=== PATIENT | female | born 1995 | race Caucasian/White ===

== ENCOUNTER 2024-12-16 09:30 | Outpatient (AMB) | payer OTHER, SELFPAY ==
--- OUTSIDE RECORDS SUMMARY | 2024-12-13 07:50 | XMS_ITS | Encounter Summary ---
Author Organization [facility] Address [address] [facility] [place], [place] [address] [place] [address] Phone Care Team Providers Care Maintenance Carpenter Name Role Phone Samira Brambila MD Unavailable [phone] Samira Brambila MD Unavailable [phone] Roseline Villafana Primary Care Provider [phone] Reason for Visit * Reason Comments Routine Visit Encounter Details Date Type Department Care Team (Late st Contact Info) Description 12/13/2024 7:50 AM EDT Routine [facility] [address] [place] [address] Laury Quinn CNM [address] [place] [address] [email or web address] [place]: 27w4d Social History Tobacco Use Types Packs/Day Years Used Date Smoking Tobacco: Never Smokeless Tobacco: Never Alcohol Use Standard Drinks/Week Comments Not Currently 0 (1 standard drink = 0.6 oz pur e alcohol) rare Education Answer Date Recorded Are you interested in more education? Not on jenniffer e 08/15/2022 Are you concerned about learning? Not on file 08/15/2022 No 08/15/2022 No 08/15/2022 Digital Access Answer Date Recorded No 09/12/2022 No 09/12/2022 Reliable internet access at home? Not on file 09/12/2022 Device with a working camera? Not on file Estimated Date of Delivery Comme nts Yes 03/10/2025 Based on last me nstrual period of 06/03/2024 (Exact Date) Sex and Gender Information Value Date Recorded Sex Assigned at Not on file Legal Sex Female 8:55 PM EDT Gender Identity Not on file Sexual Orientation Not on file Occupation Industry Job Start Date Job End Date Pres[employer], [employer] Not on file No t on file Not on file documented as of this encounter Last Filed Vital Signs Vital Sign Reading Time Taken Comments Blood Pressure 110/64 12/13/2024 7:55 AM EDT Pulse - - Temperature - - Respiratory Rate - - Oxygen Saturation - - Inhaled Oxygen Concentration - - Weight 74.8 kg (164 lb 12.8 oz) 12/13/2024 7:55 AM EDT Height - - Body Mass Index 27.64 11/03/2022 11:33 AM EDT documented in this encounter Progress Notes * Laury Quinn CNM - 12/13/2024 7:50 AM EDT Encounter for supervision of normal in second trimester Rachel is a 29yo at 27w4d here w/Johnnie - active baby; denies VB, LOF Feeling a bit better overall (see back problem). Endorses some irregular cramping when she is more active. 3T labs to be drawn today Prepped for Tdap NV FKCs reviewed Questions answered re: indications for additional US LORI in 2-3wks or prn History of section Having some second thoughts about TOLAC w/recent back issues. Consideration for TOLAC would be reliant on her feelings about whether she would be able to tolerate labor and positioning for pushing. She plans to discuss w/provider at upcoming spine appt. Sacroiliac pain during MRI shows disc protrusion at L5/S1. Feeling better than LV, but still uncomfortable. Has started PT, which has helped a bit. Has upcoming appt for cortisone injection under US guidance. documented in this encounter Miscellaneous Notes * Assessment & Plan Note - Laury Quinn CNM - 12/13/2024 8:17 AM EDT Associated Problem(s): Sacroiliac pain during MRI shows disc protrusion at L5/S1. Feeling better than LV, but still uncomfortable. Has started PT, which has helped a bit. Has upcoming appt for cortisone injection under US guidance. * Assessment & Plan Note - Laury Quinn CNM - 12/13/2024 8:16 AM EDT Associated Problem(s): History of section Having some second thoughts about TOLAC w/recent back issues. Consideration for TOLAC would be reliant on her feelings about whether she would be able to tolerate labor and positioning for pushing. She plans to discuss w/provider at upcoming spine appt. * Assessment & Plan Note - Laury Quinn CNM - 12/13/2024 8:14 AM EDT Associated Problem(s): Encounter for supervision of normal in second trimester Rachel is a 29yo at 27w4d here w/Johnnie - active baby; denies VB, LOF Feeling a bit better overall (see back problem). Endorses some irregular cramping when she is more active. 3T labs to be drawn today Prepped for Tdap NV FKCs reviewed Questions answered re: indications for additional US LORI in 2-3wks or prn documented in this encounter Plan of Treatment Upcoming Encounters Date Type Department Care Team (Late st Contact Info) Description 12/26/2024 9:00 AM EDT Office Visit [facility] [address] [place] [address] [place] [address] Nella Edwards, DRYWALL HANGER HELPER [address] [facility], 2nd [place] [address] 12/28/2024 4:30 PM EDT Routine [facility] [address] [place] [address] [place] [address] Charo Multani, MEMO [address] [facility], [address] [place] [address] documented as of this encounter Visit Diagnoses Diagnosis Encounter for supervision of other normal in second trimester- Primary History of section Other postprocedural status Sacroiliac pain during documented in this encounter Additional Health Concerns Assessment Noted Time PHQ-2 Depression Total Score: 0 01/13/20 19 4:29 PM EDT documented as of this encounter Care Teams Maintenance Carpenter Relationship Specialty Start Date End Date Roseline Villafana PA [address] [place] [address] [email or web address] PCP - General Physician [employer] 12/23/23 Samira Brambila MD [address] [place] [address], [address] [place] [address] Historical LMR Provider 02/05/17 Samira Brambila MD [address] [place] [address], [address] [place] [address] Primary Care Physician 03/05/17 documented as of this encounter Additional Source Comments The information contained in this document represents components of the legal health record. It is not the complete legal health record.[facility]
--- OUTSIDE RECORDS SUMMARY | 2024-12-13 08:11 | XMS_ITS | Encounter Summary ---
Author Organization [facility] Address [address] [facility] [address] [place] [address] Phone Care Team Providers Care Bead Trimmer Name Role Phone Samira Brambila MD Unavailable [phone] Samira Brambila MD Unavailable [phone] Roseline Villafana Primary Care Provider [phone] Encounter Details Date Type Department Care Team (Latest Contact Info) Description 12/13/2024 8:11 AM EDT - 12/13/2024 11:59 PM EDT Hospital Encounter [facility] [address] [place] [address] Crystal Bradley CNM [address] [facility], [address] [place] [address] [email or web address] Discharge Disposition: Home or Self Care Social History Tobacco Use Types Packs/Day Years [...] on file documented as of this encounter Medications at Time of Discharge beclomethasone (QVAR) 40 mcg/actuation inhaler Inhale 2 puffs into the lungs 2 (two) times a day. doxylamine (UNISOM, DOXYLAMINE,) 25 mg tablet Take 1 tablet (25 mg total) by mouth nightly at bedtime as needed (sedation). 30 tablet 1 11/15/2024 escitalopram oxalate (LEXAPRO) 10 MG tablet TAKE 1 TABLET BY MOUTH EVERY DAY 90 tablet 1 11/10/2024 oxyCODONE 5 MG immediate release tabletIndications :Sacroiliac pain during Take 1 tablet (5 mg total) by mouth every 4 (four) hours as needed for pain (specific location in comments) (Back pain). Partial fill ok 30 tablet 11/09/2024 PNV no.95/ferrous fum/folic ac ( ORAL) Take by mouth. pyridoxine, vitamin B6, (B-6) 25 MG tablet Take 1 tablet (25 mg total) by mouth every 6 (six) hours as needed (nausea). 100 tablet 1 07/29/2024 documented as of this encounter Plan of Treatment Upcoming Encounters Date Type Department Care Team (Late st Contact Info) Description 12/26/2024 9:00 AM EDT Office Visit [facility] [address] [place] [address] [place] [address] Nella Edwards, ALARM ADJUSTER [address] [facility], [address] [place] [address] 12/28/2024 4:30 PM EDT Routine [facility] [address] [place] [address] [place] [address] Charo Multani, MEMO [address] [facility], [address] [place] [address] [email or web address] documented as of this encounter Procedures Procedure Name Priority Date/Time Associated Diagnosis Comments GLUCOSE TOLERANCE TEST, 1 HR Routine 12/13/2024 8:25 AM EDT Encounter for supervision of other normal in second trimester SYPHILIS ANTIBODY SCREEN ASSAY Routine 12/13/2024 8:25 AM EDT Encounter for supervision of other normal in second trimester CBC Routine 12/13/2024 8:25 AM EDT Encounter for supervision of other normal in second trimester documented in this encounter Results * Glucose tolerance test, 1 hr (12/13/2024 8:25 AM EDT) ONE HR GLUCOSE 85 70 - 180 mg/dL [facility] Blood 12/13/2024 8:25 AM EDT 12/13/2024 9:25 AM EDT Crystal Bradley [facility] LAB BLOOD ORDERABLES Final Resul t [facility] [address] [place] [address] * (ABNORMAL) CBC (12/13/2024 8:25 AM EDT) WBC 8.43 4.00 - 11.00 K/uL [facility] RBC 3.64(L) 4.00 - 5.20 M/uL [facility] HGB 11.3(L) 12.0 - 16.0 g/dL [facility] HCT 35.3(L) 36.0 - 46.0 % [facility] PLT 236 150 - 450 K/uL [facility] MCV 97.0 80.0 - 100.0 fL [facility] MCH 31.0 27.0 - 31.0 pg [facility] MCHC 32.0 32.0 - 36.0 g/dL [facility] RDW 13.6 11.5 - 14.5 % [facility] MPV 9.6 8.4 - 12.0 fL [facility] NRBC 0.00 0.00 /100 WBCs [facility] ABSOLUTE NRBC 0.00 0.00 K/uL [facility] Blood 12/13/2024 8:25 AM EDT 12/13/2024 9:25 AM EDT us Crystal Bradley [facility] LAB BLOOD ORDERABLES Final Resul t Performing Organization Address City/[facility]/ZIP Co de Phone Number [address] [address] * Syphilis antibody screen (12/13/2024 8:25 AM EDT) RPR NON-REACTIV E NON-REACTI VE [facility] Blood 12/13/2024 8:25 AM EDT 12/13/2024 9:25 AM EDT [facility] Final Resul t Performing Organization Address [facility] Co de Phone Number [address] [address] documented in this encounter Visit Diagnoses Diagnosis Encounter for supervision of other normal in second trimester documented in this encounter Additional Health Concerns Assessment Noted Time PHQ-2 Depression Total Score: 0 01/13/20 19 4:29 PM EDT documented as of this encounter Care Teams Bead Trimmer Relationship Specialty Start Date End Date Roseline Villafana PA [address] [place] [address] [email or web address] PCP - General Physician Grinder 12/23/23 Samira Brambila MD [address] [place] [address], [address] [place] [address] [email or web address] Historical LMR Provider 02/05/17 Samira Brambila MD [address] [place] [address], [address] [place] [address] [email or web address] Primary Care Physician 03/05/17 documented as of this encounter Additional Source Comments The information contained in this document represents components of the legal health record. It is not the complete legal health record.[facility]
[2024-12-16 09:36] VITALS: BP 125/62; PULSE 90; RESP 16; O2SAT 97; BMI 27.6
--- NOTE | 2024-12-16 09:36 | MHC.OFFVIS ---
Vital Signs 12/16/24 09:36 Height 5 ft 5 in Weight 166 lb BMI 27.6 BP 125/62 Blood Pressure Location Lt brachial Position Sitting Respiration 16 Pulse 90 Pulse Source Pulse Oximeter Pulse Oximetry (%) 97 Oxygen Delivery Method Room Air Intake Visit Reasons: L5-S1 JAY w/ultrasound Binder Operator Required: No Accompanied by: Spouse Allergies No Known Allergies Allergy (Verified 12/16/24 09:37) HPI HPI L5-S1 JAY w/ultrasound: Details: History of Present Illness The patient is a 29-year-old female presenting for a landmark right intralaminar epidural steroid injection due to right paracentral L5-S1 disc herniation with lumbar radiculopathy. She is 28 weeks and reports right-sided pain radiating down the leg, sometimes to the ankle, currently to the calf. This is the first time she has experienced such pain. Physical therapy has been attempted, providing minimal relief, and she remains uncomfortable. This is her second , with a history of epidural use during the first. Pain Description - Onset: First occurrence during current - Quality: Radiating pain down the right leg - Location: Right side, radiating to the calf and sometimes to the ankle - Exacerbating factors: Persistent despite physical therapy - Relieving factors: Slight relief with physical therapy Physical Exam - Lumbar Spine: Palpation performed to assess ASIS/spinous processes Results - Procedure: Status post landmark guided epidural steroid injection Pain Management - Affect: Pain causing significant discomfort - Analgesia: Undergoing epidural steroid injection for pain relief - Activities of Daily Living: Pain impacts daily comfort despite physical therapy Patient Instructions - Follow up with physical therapy as previously scheduled. - Monitor for any changes in pain or new symptoms and report them promptly. [facility] Medical History (Updated 12/01/24 @ 11:28 by Luisa Pedraza LPN) Sacrococcygeal disorders, not elsewhere classified Radiculopathy, lumbar region Physical Exam Vital Signs: Last Vital Signs Pulse 90 12/16/24 09:36 Resp 16 12/16/24 09:36 BP 125/62 12/16/24 09:36 Pulse Ox 97 12/16/24 09:36 Oxygen Delivery Method Room Air 12/16/24 09:36 BMI result Body Mass Index 27.6 Office Procedures AMB Joint Injection/Aspiration Joint Injection/Aspiration Details: Interlaminar epidural steroid injection, L5/S1, Right parasaggital After obtaining written consent, pre-procedure blood pressure and heart rate were stable and recorded in the nursing record. The patient was placed in the prone position. The lumbar area was widely prepped with chloraprep and draped in sterile fashion. Physical exam was used to identify the desired interlaminar space and for needle placement. Subcutaneous 0.5% lidocaine was used to anesthetize the skin overlying the target. A 17-gauge Tuohu needle was advanced to the epidural space using loss of resistance to saline technique. There was no evidence of heme or CSF and no paresthesias were elicited with needle placement. Next 3 ml 0.5% lidocaine mixed with 80 mg triamcinilone was administered epidurally with no pain elicited on injection. The needle tract tubing was then cleared with reinserting the stylet. The needle was removed, skin cleansed and a sterile bandage was applied. The patient tolerated the procedure well and no complications were encountered. Following the procedure the patient's vital signs were stable. The patient was discharged home in good condition with post-procedural instructions. Time Out: Immediately prior to the procedure, the following was verbally confirmed that there is a signed consent form and that the correct patient, planned procedure, site and side are consistent with documentation and that necessary equipment and/or blood products are available prior to the start of the case. Complications: none EBL: <2 cc Coding Details: Lumbar interlaminar epidural injection without fluoroscopy Additional procedure code (CPT) needed Assessment & Plan Assessment & Plan (1) Radiculopathy, lumbar region: Code(s): M54.16 - Radiculopathy, lumbar region Category: Medical Plan Plan Patient was informed and verbally consented to the use of an ambient scribe for clinic note documentation during this visit. 1. Right Paracentral L5-S1 Disc Herniation With Lumbar Radiculopathy - Plan: Administered landmark right intralaminar epidural steroid injection to alleviate lumbar radiculopathy symptoms. Discussion Notes I discussed with the patient the procedure of the landmark right intralaminar epidural steroid injection, explaining that it would be similar to the epidural she received during her first . We reviewed the expected outcomes and the potential for pain relief, and she consented to proceed. Coding Level of Care Code New Pt Level 4 (33219) Diagnoses Radiculopathy, lumbar region M54.16
--- OUTSIDE RECORDS SUMMARY | 2024-12-16 10:17 | XMS_ITS | Clinical Summary ---
Author Organization [facility] Address [address] [facility] [address] [place] [id number] Phone Care Team Providers Care Television Program Director Name Role Phone Samira Brambila MD Unavailable [phone] Samira Brambila MD Unavailable [phone] Roseline Villafana Primary Care Provider [phone] Allergies No known active allergies Medications beclomethasone (QVAR) 40 mcg/actuation inhaler Inhale 2 puffs into the lungs 2 (two) times a day. Active PNV no.95/ferrous fum/folic ac ( ORAL) Take by mouth. Active pyridoxine, vitamin B6, (B-6) 25 MG tablet Take 1 tablet (25 mg total) by mouth every 6 (six) hours as needed (nausea). 100 tablet 1 07/29/2024 Active escitalopram oxalate (LEXAPRO) 10 MG tablet TAKE 1 TABLET BY MOUTH EVERY DAY 90 tablet 1 11/10/2024 Active oxyCODONE 5 MG immediate release tabletIndicatio ns:Sacroiliac pain during Take 1 tablet (5 mg total) by mouth every 4 (four) hours as needed for pain (specific location in comments) (Back pain). Partial fill ok 30 tablet 11/09/2024 Active doxylamine (UNISOM, DOXYLAMINE,) 25 mg tablet Take 1 tablet (25 mg total) by mouth nightly at bedtime as needed (sedation). 30 tablet 1 11/15/2024 Active Active Problems Problem Noted Date Diagnosed Date Sacroiliac pain during 11/09/2024 Overview (12/13/2024): Seeing Dr. Mclean. Concern for disc herniation, MRI scheduled. - L5/S1 disc protrusion Tried tylenol, lidocaine patches, flexeril to no effect. 11/09/24: Dr. Naidu jimena narcotic. Rx for 30 tabs of oxycodone 5 mg rx'ed. Started PT Has cortisone injection planned Assessment & Plan (12/13/2024 8:17 AM EDT): MRI shows disc protrusion at L5/S1. Feeling better than LV, but still uncomfortable. Has started PT, which has helped a bit. Has upcoming appt for cortisone injection under US guidance. Assessment & Plan (11/15/2024 8:36 AM EDT): Rachel has severe low back pain with limitations in all ADLs. In visit she is standing leaning over with forearms on table and states she is in this position all day due to pain - states she actually sometimes sleeps in this position. Lying down and sitting down are too painful. She is observed walking and standing with discomfort. Wearing SI joint stabilizer. States tylenol, oxycodone, flexeril, and SI joint belt have had no impact. She had MRI on Thursday and is awaiting results, was advised she would receive these today or tomorrow. Her understanding is that she may receive a cortisone shot if MRI indicates pain is likely s/t sacroiliitis. Reviewed dosages of Tylenol and suggested sleep aid, lidocaine patch. Advised ok to take ibuprofen for severe pain for no more than 48 hours total time of therapy. Check in at n.v. Family history of polycystic kidney disease 07/19 Overview (08/16/2024): Mother and Maternal Uncle. Reports her mother had a kidney transplant 8 years ago, donated kidney from her father. She has never been worked up for polycystic kidney disease. Has had kidney stones in past. History of section 07/29/2024 Overview (10/20/2024): Date of surgery: 2022 Reason for prior : Failure to descend, pushed for 3 hours 3900gm baby Incision type: Need outside records. Likely LTCS at 41 weeks Records requested/reviewed: Contraindications to TOLAC include > 2 prior births, prior uterine rupture or dehiscence, prior transfundal incision (classical, T, or J incisions; myomectomy with incision into uterine cavity or by surgeon's discretion), interpregnancy interval < 6 months Anterior placenta no POSTERIOR If anterior, schedule level 2 US to assess for signs of accreta Delivery route counselin10/20/24 packet given Preferred mode of delivery: pt unsure Consent signed: If calculator score <60%, schedule MD consult at 35-37 weeks Calculator: 58.6%[email or web address] Assessment & Plan (12/13/2024 8:16 AM EDT): Having some second thoughts about TOLAC w/recent back issues. Consideration for TOLAC would be reliant on her feelings about whether she would be able to tolerate labor and positioning for pushing. She plans to discuss w/provider at upcoming spine appt. Assessment & Plan (11/15/2024 8:37 AM EDT): Feels ready to sign consent for TOLAC. Would like RCS at 41 weeks if no labor. Forgot to sign consent today. Please do at n.v. Assessment & Plan (10/20/2024 9:51 AM EDT): Records reviewed, but no OP report. Pt to sign MOISES specifically for the [facility] [place]. Info packet given. Pt planning another baby after this one, so would prefer two VBACs. However, wants to avoid another long labor that ended in a CS. Assessment & Plan (08/16/2024 12:46 PM EDT): Rachel reports she is open to either TOLAC or repeat c/s and is interested in discussing further about risks/benefits of both and recommendations. Encounter for supervision of normal in second trimester 07/29/2024 Overview (12/13/2024): [facility] Group PN care? * screening cfDNA Baby ASA n/a Rh A+ GC/Chlam Neg/Neg PAP - up to date per pt, MOISSE sent for [place] records Flu * COVID-19 * Hgb * GTT * Repeat RPR * Tdap * EPDS * PPBC * GBS * Infant Feeding Plan * Partner, Johnnie Expecting baby girl Assessment & Plan (12/13/2024 8:19 AM EDT): Rachel is a 29yo at 27w4d here w/Johnnie - active baby; denies VB, LOF Feeling a bit better overall (see back problem). Endorses some irregular cramping when she is more active. 3T labs to be drawn today Prepped for Tdap NV FKCs reviewed Questions answered re: indications for additional US LORI in 2-3wks or prn Assessment & Plan (11/15/2024 8:36 AM EDT): Here with partner. Visit focused on low back pain. Discussed GTT/CBC/RPR at time of n.v. Feeling movement. Discussed childbirth ed and CBC tours. Assessment & Plan (10/20/2024 9:54 AM EDT): Rachel is feeling generally well. Sciatic pain improved a bit with wearing support belt. Had FAS today, which we reviewed. Normal, follow up scheduled for incomplete views. Starting to feel FM LORI 2 wks for repeat US Assessment & Plan (09/14/2024 4:13 PM EDT): Rachel is doing well. Nausea is improving. Still having sciatic pain. The chiropractor she contacted was charging a lot of money. Reviewed other options with her. Discussed support belt and spinning babies exercises. Happy to hear heartbeat today. Anatomy scan ordered and scheduled. Cystic fibrosis carrier 07/29/2024 Overview (07/29/2024): Partner tested and was negative Mild intermittent asthma without complication Overview (08/16/2024): Exercise induced. Never hospitalized or intubated Has a rescue inhaler Anxiety 11/09/2017 Overview (07/29/2024): Taking Lexapro, stable Had mild pp depression after son was born. Lexapro helped a lot. Would like to continue through the Assessment & Plan (08/16/2024 12:49 PM EDT): Pt would like referral to therapist. Referral placed. Menstrual migraine 11/09/2017 Estimated Date of Delivery Comme nts Yes 03/10/2025 Based on last me nstrual period of 06/03/2024 (Exact Date) Encounters Date Type Department Care Team Description 12/13/2024 8:11 AM EDT - 12/13/2024 11:59 PM EDT Hospital Encounter [facility] [address] [place] [address] Crystal Bradley CNM Discharge Disposition: Home or Self Care 12/13/2024 7:50 AM EDT Routine [facility] [address] [place] [address] Laury Quinn CNM GA: 27w4d 11/21/2024 Orders Only [facility] Neurology [address] [place] [address] Opal Spencer MA Lumbar radiculitis 11/17/2024 Orders Only [facility] Spine Medicine [address] [place] [address] Bo Mclean MD 11/15/2024 7:50 AM EDT Routine [facility] [address] [place] [address] [place] [address] Crystal Bradley CNM GA: 23w4d 11/09/2024 3:29 PM EDT - 11/09/2024 11:59 PM EDT Hospital Encounter [facility] [address] [place] [address] Clari Mack CNM Discharge Disposition: Home or Self Care 11/09/2024 9:00 AM EDT Telemedicine - audio only [facility] Spine Medicine [address] [place] [address] [place] [address] Bo Mclean MD Lumbar radiculitis (Primary Dx); Disorder of sacrum 11/09/2024 Refill [facility] [address] [place] [address] [place] [address] Jacque Peace CNM Medication Refill 11/07/2024 Orders Only [facility] [address] [place] [address] [place] [address] Bo Mclean MD Lumbar radiculitis (Primary Dx) 11/06/2024 Telephone [facility] Obstetrics - Virtual Department [address] [place] [address] Hazel Dinero CNM worsening SI pain 11/04/2024 Telephone [facility] [address] [place] [address] [place] [address] Clari Mack CNM Appointment 11/03/2024 Orders Only [facility] Medicine [address] [place] [address] [place] [address] Bo Mclean MD Disorder of sacrum (Primary Dx) 11/03/2024 Telephone [facility] [address] [place] [address] [place] [address] Bo Mclean MD 10/20/2024 9:30 AM EDT Routine [facility] [address] [place] [address] [place] [address] Clari Mack CNM GA: 19w6d 10/20/2024 8:06 AM EDT - 10/20/2024 11:59 PM EDT Hospital Encounter [facility] [address] [place] [address] Charo Multani CNM Discharge Disposition: Home or Self Care 10/13/2024 8:20 AM EDT Office Visit [facility] [address] [place] [address] Bo Mclean MD Disorder of sacrum (Primary Dx); related back pain in second trimester, antepartum 10/05/2024 Telephone [facility] [address] [place] [address] Klaudia Jj LPN SI joint pain 03/09 from Last 3 Months Immunizations Immunization Administration Dates Next Due COVID-19 (Pre-02/09) Moderna Vaccine, mRNA, PF 01/05/2021,11/28/2020 DTaP 10/30/1997, 5,01/10/1994,11/08,1993 [id number] FORMULATION 01/25/2009 HPV,quadrivalent 04/15/2012,12/23/2011, 2 Hepatitis B Adult 09/21/2008, 9,08/11/2008,04/18,1993,1993 Hib,PRP-T 10/09/1994, 4,1993,09/13 INFLUENZA, SPLIT VIRUS, TRIV ALENT W/ PRESERVATIVE IM 02/28/2014,02/20/2012,12/02/2010,03/07 IPV 10/30/1997, 4,1993,09/13 Influenza Quadrivalent Prese rvative Free IM 03/22/2020 Influenza Quadrivalent w/ Pr eservative IM 01/12/2019 Influenza Trivalent Adjuvant ed Preservative free IM 03/21/2020 MMR 10/30/1997,10/09/1994 Meningococcal MCV4, unspecif ied Formulation 10/14/2011,07/21/2005 Tdap 04/10/2022,07/21/2005 Varicella 08/11/2008 Family History Medical History Relation Comments Allergies Father Diabetes mellitus Maternal Grandfather Osteoarthritis Maternal Grandfather Valvular heart disease Maternal Grandfather 50s Polycystic kidney disease Maternal Uncle ? Hypertension Mother Osteoarthritis Mother Polycystic kidney disease Mother Nephrolithiasis Paternal Grandmother Migraines Sibling Relation Status Comments Brother Alive Father Maternal Grandfather Maternal Uncle Mother Paternal Grandmother Sibling Sister 1 Alive Sister 2 Alive Son Alive Social History Tobacco Use Types Packs/Day Years Used Date Smoking Tobacco: Never Smokeless Tobacco: Never Tobacco Cessation:Counseling Given: Not Answered Alcohol Use Standard Drinks/Week Comments Not Currently [...] Industry Job Start Date Job End Date [employer] [employer] Not on file No t on file Not on file Last Filed Vital Signs Vital Sign Reading Time Taken Comments Blood Pressure 110/64 12/13/2024 7:55 AM EDT Pulse 85 01/12/2019 4:28 PM EDT Temperature - - Respiratory Rate - - Oxygen Saturation 98% 01/12/2019 4:28 PM EDT Inhaled Oxygen Concentration - - Weight 74.8 kg (164 lb 12.8 oz) 12/13/2024 7:55 AM EDT Height 164.5 cm (5' 4.75 ) 11/03/2022 1 1:33 AM EDT Body Mass Index 27.64 11/03/2022 11:33 AM EDT Plan of Treatment Upcoming Encounters Date Type Department Care Team (Late st Contact Info) Description 12/26/2024 9:00 AM EDT Office Visit [facility] [address] [place] [address] [place] [address] Nella Edwards, PASCALE [address] [facility] [address] [facility] [place] [address] 12/28/2024 4:30 PM EDT Routine [facility] [address] [place] [address] [place] [address] Charo Multani, MEMO [address] [facility], [address] [place] [address] [email or web address] Health Maintenance Due Date Last Done Comments PNEUMOCOCCAL VACCINES (0-49 years) (1 of 2 - PCV) 2012 DEPRESSION SCREENING 01/13/2020 01/12/2019 PAP SMEAR 01/12/2022 01/12/2019, 12/20, 08/15/2014 COVID-19 VACCINE ( season) 2023 01/05/2021, 11/28/2020 INFLUENZA VACCINE (#1) 2024 , 03/21/2020, 01/12/2019, Additional history exists RSV VACCINE (1 - Risk 1-dose series) 01/13/2025 Adult Td,Tdap Booster 04/10/2032 04/10/2022, 006 HIB VACCINES Completed 10/09/1994, 12/20, 1993, Additional history exists MENINGOCOCCAL VACCINES (ACWY) Completed 10/14/2011, 07/21/2005 HEPATITIS C SCREENING Completed 08/16/2024 HIV ONE-TIME SCREENING (18-65 YEARS) Completed 08/16/2024 SMOKING STATUS SCREENING (Once After 26 Yrs) Completed 11/09/2024 HEPATITIS A VACCINES Aged Out No long er eligible based on patient's age to complete this topic MENINGOCOCCAL VACCINES (B) Aged Out N o longer eligible based on patient's age to complete this topic Medical Devices Not on file Procedures Procedure Name Priority Date/Time Associated Diagnosis Comments GLUCOSE TOLERANCE TEST, 1 HR Routine 12/13/2024 8:25 AM EDT Encounter for supervision of other normal in second trimester CBC Routine 12/13/2024 8:25 AM EDT Encounter for supervision of other normal in second trimester SYPHILIS ANTIBODY SCREEN ASSAY Routine 12/13/2024 8:25 AM EDT Encounter for supervision of other normal in second trimester MRI LUMBAR SPINE Urgent/patient waiting 11/11/2024 10:55 AM EDT Lumbar radiculitis US OB GREATER THAN OR EQUAL TO 14 WEEKS LIMITED Routine 11/09/2024 4:06 PM EDT Encounter for supervision of other normal in second trimester US OB GREATER THAN OR EQUAL TO 14 WEEKS ANATOMICAL COMPLETE SURVEY Routine 10/20/2024 8:51 AM EDT Encounter for supervision of other normal in first trimester HEPATITIS C ANTIBODY, QUALITATIVE Routine 08/16/2024 9:30 AM EDT Need for hepatitis C screening test PAP TEST Routine 01/12/2019 12:00 AM EDT from Last 3 Months or Most Recently Relevant to Health Maintenance Results * Glucose tolerance test, 1 hr (12/13/2024 8:25 AM EDT) ONE HR GLUCOSE 85 70 - 180 mg/dL [facility] Blood 12/13/2024 8:25 AM EDT 12/13/2024 9:25 AM EDT Crystal [facility]ZO LAB BLOOD ORDERABLES Final Resul t [address] [address] * Syphilis antibody screen (12/13/2024 8:25 AM EDT) RPR NON-REACTIV E NON-REACTI VE [facility] Blood 12/13/2024 8:25 AM EDT 12/13/2024 9:25 AM EDT Crystal RAZO LAB BLOOD ORDERABLES Final Resul t Performing Organization Address [facility] de Phone Number [address] [address] * (ABNORMAL) CBC (12/13/2024 8:25 AM EDT) WBC 8.43 4.00 - 11.00 K/uL [facility] RBC 3.64(L) 4.00 - 5.20 M/uL [facility] HGB 11.3(L) 12.0 - 16.0 g/dL [facility] HCT 35.3(L) 36.0 - 46.0 % [facility] PLT 236 150 - 450 K/uL [facility] MCV 97.0 80.0 - 100.0 fL [facility] MCH 31.0 27.0 - 31.0 pg [facility] MCHC 32.0 32.0 - 36.0 g/dL [facility] RDW 13.6 11.5 - 14.5 % [facility] MPV 9.6 8.4 - 12.0 fL [facility] NRBC 0.00 0.00 /100 WBCs [facility] ABSOLUTE NRBC 0.00 0.00 K/uL [facility] Blood 12/13/2024 8:25 AM EDT 12/13/2024 9:25 AM EDT us Crystal Bradley [facility] LAB BLOOD ORDERABLES Final Resul t Performing Organization Address [facility] Co de Phone Number [address] [address] * MRI Lumbar Spine (11/11/2024 10:55 AM EDT) Anatomical Region Laterality Modality L-spine MRI Diagnostic us Bo Mclean MD IMG MR XSPECIALTY Final Resu lt * US OB GREATER THAN OR EQUAL TO 14 WEEKS LIMITED (11/09/2024 4:06 PM EDT) Anatomical Region Laterality Modality Abdomen, Pelvis, Uterus/Adnexa U ltrasound 11/09/2024 4:08 PM EDT Impressions 11/10/2024 8:13 AM EDT Follow anatomic views as described above appear normal. Narrative 11/10/2024 8:13 AM EDT Procedure: US OB GREATER THAN OR EQUAL TO 14 WEEKS LIMITED 11/09/2024 3:30 PM US Indications: Other Indication (Please use free text); incomplete views. Comparison: No relevant recent comparisons. Maternal age: 29 years. Technique: Transabdominal scan was performed. Color Doppler and M-mode imaging was performed to assess vascularity. FINDINGS: number: 1 position: Vertex. Placental position: Posterior. Placental Grade: 2 Placental appearance: Normal. Amniotic fluid assessment: The amniotic fluid is visually within normal limits. FHR: 144.0 bpm Gestational Age by LMP: 22 weeks 5 day(s) Established GRISELDA: 22 weeks 5 day(s) Documented anatomy: Head/Neck: Lateral ventricles - Seen Midline falx - Seen Cavum septi pellucidi - Seen Chest: Four-chamber view - Seen Right ventricular outflow tract - Seen Aortic Arch - Seen 3 Vessel View - Seen Abdomen: Stomach - Seen Diaphragm - Seen Kidneys - Seen Urinary bladder - Seen Placental Cord Insertion - Seen Limbs: Right ankle - seen Left ankle - seen Spine (in sagittal and transverse plane): Cervical - Seen Thoracic - Seen Lumbar - Seen Sacral - Seen Motion: Normal motion was observed. Cervix: Uterine myometrium: Grossly normal Right ovary: Unremarkable Left ovary: Unremarkable Tech Comments: Harris . RVOT, 3VV, ankles, and spine appear grossly normal. Active fetus. Normal fluid. Procedure Note Jed Quigley MD - 11/10/2024 Procedure: US OB GREATER THAN OR EQUAL TO 14 WEEKS LIMITED 11/09/2024 3:30PM US Indications: Other Indication (Please use free text); incompleteviews. Comparison: No relevant recent comparisons. Maternal age: 29 years. Technique: Transabdominal scan was performed. Color Doppler and M-modeimaging was performed to assess vascularity. FINDINGS: number: 1 position: Vertex. Placental position: Posterior. Placental Grade: 2 Placental appearance: Normal. Amniotic fluid assessment: The amniotic fluid is visually within normallimits. FHR: 144.0 bpm Gestational Age by LMP: 22 weeks 5 day(s) Established GRISELDA: 22 weeks 5 day(s) Documented anatomy: Head/Neck: Lateral ventricles - Seen Midline falx - Seen Cavum septi pellucidi - Seen Chest: Four-chamber view - Seen Right ventricular outflow tract - Seen Aortic Arch - Seen 3 Vessel View - Seen Abdomen: Stomach - Seen Diaphragm - Seen Kidneys - Seen Urinary bladder - Seen Placental Cord Insertion - Seen Limbs: Right ankle - seen Left ankle - seen Spine (in sagittal and transverse plane): Cervical - Seen Thoracic - Seen Lumbar - Seen Sacral - Seen Motion: Normal motion was observed. Cervix: Uterine myometrium: Grossly normal Right ovary: Unremarkable Left ovary: Unremarkable Tech Comments: Harris . RVOT, 3VV, ankles, and spine appear grossly normal.Active fetus. Normal fluid. IMPRESSION: Follow anatomic views as described above appear normal. us Clari Mack CNM IMG US OBSTETRIC Final Res ult * US OB GREATER THAN OR EQUAL TO 14 WEEKS ANATOMICAL COMPLETE SURVEY (10/20/2024 8:51 AM EDT) Anatomical Region Laterality Modality Abdomen, Pelvis, Uterus/Adnexa U ltrasound 10/20/2024 8:52 AM EDT Impressions 10/23/2024 10:26 PM EDT 1. Single live IUP with above dating criteria. 2. Heart and LE views were limited recommend repeat exam in two weeks to reassess these views. 3. The remainder of the anatomic survey appears grossly normal. Narrative 10/23/2024 10:26 PM EDT Procedure: US OB GREATER THAN OR EQUAL TO 14 WEEKS ANATOMICAL COMPLETE SURVEY 10/20/2024 8:18 AM US Indications: Anatomic Survey. Comparison: No relevant recent comparisons. Maternal age: 29 years. Technique: Transabdominal scan was performed. Color Doppler and M-mode imaging was performed to assess vascularity. FINDINGS: number: 1 position: Vertex. Placental position: Posterior. Placental Grade: 2 Placental appearance: Normal. Amniotic fluid assessment: The amniotic fluid is visually within normal limits. FHR: 150.0 bpm Estimated weight (EFW): 286.9 grams- 10 oz. 19.4% based on established GRISELDA Hadlock. Reported LMP: [id number] Gestational Age by LMP: 19 weeks 6 day(s) Ultrasound EGA: 19 weeks 3 day(s) Ultrasound GRISELDA: [id number] Established GRISELDA: 19 weeks 6 day(s) Biometry: BPD: 4.40 cm, consistent with 19 weeks 3 day(s) and 27% Head Circumference: 16.70 cm, consistent with 19 weeks 3 day(s) and 21% Abdominal Circumference: 14.22 cm, consistent with 19 weeks 5 day(s) and 35% Femur Length: 2.94 cm, consistent with 19 weeks 1 day(s) and 17% Humerus: 3.12 cm, consistent with 20 weeks 3 day(s) and 69% Cerebellum: 1.98 cm, consistent with 20 weeks 2 day(s) Lat Vent: 0.55 cm Cist Ma.34 cm HC/AC: 1.17 FL/BPD: 0.67 FL/AC: 0.21 Documented anatomy: Head/Neck: Lateral ventricles - Seen Choroid plexus - Seen Midline falx - Seen Cavum septi pellucidi - Seen Cerebellum - Seen Cisterna magna - Seen Nuchal fold - Seen Face: Orbit/Lenses - Seen Upper lip - Seen Profile - Seen Chest: Four-chamber view - Seen Left ventricular outflow tract - Seen Right ventricular outflow tract - Not seen Aortic Arch - Limited Ductal Arch - Seen 3 Vessel View - Seen 3 VTV - Seen Abdomen: Stomach - Seen Diaphragm - Seen Kidneys - Seen Urinary bladder - Seen Abdominal cord insertion - Seen Three-vessel cord - Seen Placental Cord Insertion - Seen Limbs: Right arm and hand present - Seen Left arm and hand present - Seen Right leg and foot present - Seen Left leg and foot present - Seen Spine (in sagittal and transverse plane): Cervical - Not seen Thoracic - Not seen Lumbar - Not seen Sacral - Not seen Motion: Normal motion was observed. Cervix: 3.82 cm Uterine myometrium: Grossly normal Right ovary: Not visualized. Left ovary: Not visualized. Tech Comments: Harris . EFW = 19%. Incomplete heart and heels/ankles views today d/t position. Remaining anatomy appears grossly normal. Active fetus. Normal fluid. Procedure Note Jed Quigley MD - 10/23/2024 Procedure: US OB GREATER THAN OR EQUAL TO 14 WEEKS ANATOMICAL COMPLETESURVEY 10/20/2024 8:18 AM US Indications: Anatomic Survey. Comparison: No relevant recent comparisons. Maternal age: 29 years. Technique: Transabdominal scan was performed. Color Doppler and M-modeimaging was performed to assess vascularity. FINDINGS: number: 1 position: Vertex. Placental position: Posterior. Placental Grade: 2 Placental appearance: Normal. Amniotic fluid assessment: The amniotic fluid is visually within normallimits. FHR: 150.0 bpm Estimated weight (EFW): 286.9 grams- 10 oz. 19.4% based on established GRISELDA Hadlock. Reported LMP: [id number] Gestational Age by LMP: 19 weeks 6 day(s) Ultrasound EGA: 19 weeks 3 day(s) Ultrasound GRISELDA: [id number] Established GRISELDA: 19 weeks 6 day(s) Biometry: BPD: 4.40 cm, consistent with 19 weeks 3 day(s) and 27% Head Circumference: 16.70 cm, consistent with 19 weeks 3 day(s) and 21% Abdominal Circumference: 14.22 cm, consistent with 19 weeks 5 day(s) and35% Femur Length: 2.94 cm, consistent with 19 weeks 1 day(s) and 17% Humerus: 3.12 cm, consistent with 20 weeks 3 day(s) and 69% Cerebellum: 1.98 cm, consistent with 20 weeks 2 day(s) Lat Vent: 0.55 cm Cist Ma.34 cm HC/AC: 1.17 FL/BPD: 0.67 FL/AC: 0.21 Documented anatomy: Head/Neck: Lateral ventricles - Seen Choroid plexus - Seen Midline falx - Seen Cavum septi pellucidi - Seen Cerebellum - Seen Cisterna magna - Seen Nuchal fold - Seen Face: Orbit/Lenses - Seen Upper lip - Seen Profile - Seen Chest: Four-chamber view - Seen Left ventricular outflow tract - Seen Right ventricular outflow tract - Not seen Aortic Arch - Limited Ductal Arch - Seen 3 Vessel View - Seen 3 VTV - Seen Abdomen: Stomach - Seen Diaphragm - Seen Kidneys - Seen Urinary bladder - Seen Abdominal cord insertion - Seen Three-vessel cord - Seen Placental Cord Insertion - Seen Limbs: Right arm and hand present - Seen Left arm and hand present - Seen Right leg and foot present - Seen Left leg and foot present - Seen Spine (in sagittal and transverse plane): Cervical - Not seen Thoracic - Not seen Lumbar - Not seen Sacral - Not seen Motion: Normal motion was observed. Cervix: 3.82 cm Uterine myometrium: Grossly normal Right ovary: Not visualized. Left ovary: Not visualized. Tech Comments: Harris . EFW = 19%. Incomplete heart and heels/ankles viewstoday d/t position. Remaining anatomy appears grossly normal.Active fetus. Normal fluid. IMPRESSION: 1. Single live IUP with above dating criteria. 2. Heart and LE views were limited recommend repeat exam in two weeks toreassess these views. 3. The remainder of the anatomic survey appears grossly normal. Charo Multani CNM IMG US OBSTETRIC Final Result * Hepatitis C antibody, qualitative (08/16/2024 9:30 AM EDT) HCV NON-REACTIV E NON-REACTI VE [facility] Blood 08/16/2024 9:30 AM EDT 08/16/2024 9:43 AM EDT Charo Multani CNM LAB BLOOD ORDERABLES F inal Result [address] [address] * Pap Smear (01/12/2019 12:00 AM EDT) 01/12/2019 01/13/2019 10: 48 AM EDT Narrative SEE NARRATIVE - 01/19/2019 3:02 PM EDT [address] [address] Silver Buffer: Valeria Coronel MD BANK CONSULTANT Cytology Report FINAL DIAGNOSIS A. PAP SMEAR (SUREPATH) CE: SPECIMEN ADEQUACY: Satisfactory for evaluation; transformation zone present. INTERPRETATION: NEGATIVE FOR INTRAEPITHELIAL LESION OR MALIGNANCY. Electronically Signed Out By: Magnolia PHILIPPE(ASCP) The Pap test is a screening test primarily for squamous cancers and precursors and has associated false-negative and false-positive results. New technologies such as liquid-based preparations may decrease but will not eliminate all false-negative results. Regular sampling and follow-up of unexplained clinical signs and symptoms are recommended to minimize false negative results. CLINICAL HISTORY Date of Last Menstrual Period: Not Provided Menstrual History: Unknown Other Clinical Conditions: Screening Pap SPECIMEN SOURCE A: PAP SMEAR (SUREPATH) CE Patient Name: KIMBERLY BALTAZARA : 1995 (Age: 23) Sex: F Institution: [facility] Location: [facility] Date of Collection: 01/12/2019 Date of Reported: 01/19/2019 15:02 Results to: Samira Brambila MD Samira Brambila MD CYTOLOGY ORDERABLES Final R esult SEE NARRATIVE from Last 3 Months or Most Recently Relevant to Health Maintenance Insurance [facility] PLUS PPO [employer] PLUS PPO [employer]US PPO [employer] PLUS PPO [employer] PLUS PPO [employer] PLUS PPO Care Teams Television Program Director Relationship Specialty Start Date End Date Roseline Villafana PA [address] [place] [address] [email or web address] PCP - General Physician Credit Operations Specialist 12/23/23 Samira Brambila MD [address] [place] [id number] Historical LMR Provider 02/05/17 Samira Brambila MD [address] [place] [address] Primary Care Physician 03/05/17 Additional Source Comments The information contained in this document represents components of the legal health record. It is not the complete legal health record.[facility]
--- OUTSIDE RECORDS SUMMARY | 2024-12-16 10:17 | XMS_ITS | Encounter Summary ---
Author Organization [facility] Address [address] [facility] [address] [place] [address] Phone Care Team Providers Care Swimming Instructor Name Role Phone Samira Brambila MD Unavailable [phone] Samira Brambila MD Unavailable [phone] Roseline Villafana Primary Care Provider [phone] Encounter Details Date Type Department Care Team (Late st Contact Info) Description 11/21/2024 Orders Only [facility] Neurology [address] [place] [address] Opal Spencer MA [address] [place] [address] [email or web address] Lumbar radiculitis Social History Tobacco Use Types Packs/Day Years [...] Industry Job Start Date Job End Date Yoli Michel Not on file No t on file Not on file documented as of this encounter Plan of Treatment Upcoming Encounters Date Type Department Care Team (Late st Contact Info) Description 12/26/2024 9:00 AM EDT Office Visit [facility] [address] [place] [address] [place] [address] Nella Edwards, BELT KNIFE FEEDER [address] [facility], 2nd [address] [place] [address] [email or web address] 12/28/2024 4:30 PM EDT Routine [facility] [address] [place] [address] [place] [address] Charo Multani, MEMO [address] [facility], [address] [place] [address] documented as of this encounter Procedures Procedure Name Priority Date/Time Associated Diagnosis Comments MRI LUMBAR SPINE Urgent/patient waiting 11/11/2024 10:55 AM EDT Lumbar radiculitis documented in this encounter Results * MRI Lumbar Spine (11/11/2024 10:55 AM EDT) Anatomical Region Laterality Modality L-spine MRI Diagnostic us Bo Mclean MD IMG MR XSPECIALTY Final Resu lt documented in this encounter Visit Diagnoses Diagnosis Lumbar radiculitis documented in this encounter Additional Health Concerns Assessment Noted Time PHQ-2 Depression Total Score: 0 01/13/20 19 4:29 PM EDT documented as of this encounter Care Teams Swimming Instructor Relationship Specialty Start Date End Date Roseline Villafana PA [address] [place] [address] [email or web address] [email or web address] - General Physician Scrap Wheeler 12/23/23 Samira Brambila MD [address] [place] [address], [address] [place] [address] Historical LMR Provider 02/05/17 Samira Brambila MD [address] [place] [address], [address] [place] [address] Primary Care Physician 03/05/17 documented as of this encounter Additional Source Comments The information contained in this document represents components of the legal health record. It is not the complete legal health record.[facility]
--- OUTSIDE RECORDS SUMMARY | 2024-12-16 10:17 | XMS_ITS | Patient Health Record ---
Author Organization [facility] Address [address] [facility] [address] [place] [address] Support Name Relationship Address Phone SUDHA STUBBS Guarantor Unknown [phone] Reason For Referral No Information Social History Section Notes: Patient lives locally with olga lidia lawler. She does not have any children. 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 Plan Of Treatment No Information Insurance Providers Payer Name Payer Address Payer Phone Subscriber Number Group Number Insured Name Patient Relationship to Insured Coverage Start Date Coverage End Date [employer] Benef[employer] Plan Management [address] [place] [address] [phone] [id number] SUDHA STUBBS Self - patient is the insured Medical (General) History Medical History History ICD Code Denies Surgical History Surgery Date(Month/Year) Denies
--- OUTSIDE RECORDS SUMMARY | 2024-12-16 10:17 | XMS_ITS | Encounter Summary ---
Author Organization [facility] Address [address] [address] Phone Care Team Providers Care Blankbook Stitching Machine Operator Name Role Phone Crystal Bradley MEMO Unavailable Sheila Acharya NP Unavailable [phone] Samira Brambila MD Unavailable Chloé Elkins MD Unavailable [phone] Samira Brambila MD Unavailable Samira Brambila MD Primary Care Provider [phone] Unknown, Unknown Primary Care Provider Samira Castañeda MD Primary Care Provider Pcp, Unknown Primary Care Provider UnavailRoseline Stoll Primary Care Provider [phone] Encounter Details Date Type Department Care Team (Latest Contact Info) Description 03/24/2017 Transcribe Orders [facility] [address] [place] [address] Karthikeyan Odom MD, PhD [address] [place] [address] [id number] [email or web address] Anemia due to vitamin B12 deficiency, unspecified B12 deficiency type (Primary Dx); Lyme disease; Chronic fatigue Social History Tobacco Use Types Packs/Day Years Used Date Smoking Tobacco: Never Smokeless Tobacco: Never Comments Unknown Sex and Gender Information Value Date Recorded Sex Assigned at Not on file Legal Sex Female 8:55 PM EDT Gender Identity Not on file Sexual Orientation Not on file documented as of this encounter Plan of Treatment Upcoming Encounters Date Type Department Care Team (Late st Contact Info) Description 12/26/2024 9:00 AM EDT Office Visit [facility] [address] [place] [address] [place] [address] Nella Edwards, TIRE BLADDER MAKER [address] [facility], 2nd [place] [address] 12/28/2024 4:30 PM EDT Routine [facility] [address] [place] [address] [place] [address] Charo Multani, [facility] [address] [facility], [address] [place] [address] documented as of this encounter Procedures Procedure Name Priority Date/Time Associated Diagnosis Comments LYME SCREEN WITH REFLEX TO WESTERN BLOT, BLOOD Routine 03/24/2017 3:28 PM EST Anemia due to vitamin B12 deficiency, unspecified B12 deficiency type Lyme disease Chronic fatigue VITAMIN B12 Routine 03/24/2017 3:28 PM EST Anemia due to vitamin B12 deficiency, unspecified B12 deficiency type Lyme disease Chronic fatigue documented in this encounter Results * Vitamin B12 (03/24/2017 3:28 PM EST) VITAMIN B12 591 243 - 894 pg/mL [facility] Blood 03/24/2017 3:28 PM EST 03/24/2017 3:29 PM EST us Karthikeyan Odom MD, PhD LAB BLOOD ORDERABLES Fi nal Result [facility] [address] [place] [address] * Lyme screen with reflex to Western blot, blood (03/24/2017 3:28 PM EST) Lyme AB IgG Negative Negative [facility] Lyme AB IgM Negative Negative [facility] Blood 03/24/2017 3:28 PM EST 03/24/2017 3:29 PM EST us Karthikeyan Odom MD, PhD LAB BLOOD ORDERABLES Fi nal Result [facility] [address] [place] [address] documented in this encounter Visit Diagnoses Diagnosis Anemia due to vitamin B12 deficiency, unspecified B12 deficiency type- Primary Lyme disease Chronic fatigue Other malaise and fatigue documented in this encounter Care Teams Blankbook Stitching Machine Operator Relationship Specialty Start Date End Date Samira Brambila MD [address] [place] [address], [address] [place] [address] PCP - General 03/05/17 01/15/21 Unknown, MD Rex PCP - General 01/16/21 01/30/21 Samira Brambila MD [address] [place] [address] PCP - General Internal Medicine 01/31/21 08/20/21 Pcp, Unknown PCP - General 08/21/21 12/22/23 Roseline Villafana PA [address] [place] [address] PCP - General Physician Oven Dumper 12/23/23 Crystal Bradley CNM [address] [facility], [address] [place] [address] Historical LMR Provider 02/05/17 04/27/21 Sheila Acharya NP [address] [place] [address] Historical LMR Provider 02/05/17 2 Samira Brambila MD [address] [place] [address] [email or web address] Historical LMR Provider 02/05/17 Chloé Elkins MD [address] [place] [address] Historical LMR Provider 02/05/17 2 Samira Brambila MD [address] [place] [address] Primary Care Physician 03/05/17 documented as of this encounter Additional Source Comments The information contained in this document represents components of the legal health record. It is not the complete legal health record.[facility]
== END 2024-12-16 10:06 | disposition home or self-care (01) ==
LOC: HO.PMC 09:31
PROVIDERS: PCP Physician Assistant; Visit Provider Internal Medicine
DX: M54.16 Radiculopathy, lumbar region (principal)
CPT/HCPCS: 62321; 99204

== ENCOUNTER → 2024-12-16 09:30 | Outpatient (BNVA) | payer OTHER, SELFPAY | PROVIDERS: PCP Physician Assistant; Visit Provider Internal Medicine | DX: O26.893 Other specified pregnancy related conditions, third trimester (principal); M54.16 Radiculopathy, lumbar region; Z3A.28 28 weeks gestation of pregnancy | CPT/HCPCS: 62321 ==

== ENCOUNTER 2025-01-13 09:34 | Outpatient (AMB) | payer OTHER, SELFPAY ==
--- OUTSIDE RECORDS SUMMARY | 2025-01-11 16:30 | XMS_ITS | Encounter Summary ---
Author Organization [facility] Address [address] [facility] [address] [place] [address] Phone Care Team Providers Care Heat Treat Inspector Name Role Phone Samira Brambila MD Unavailable [phone] Samira Brambila MD Unavailable Roseline Villafana Primary Care Provider [phone] Reason for Visit * Reason Comments Routine Visit Encounter Details Date Type Department Care Team (Late st Contact Info) Description 01/11/2025 4:30 PM EDT Routine [facility] [address] [place] [address] [place] [address] Charo Multani CNM [address] [facility], [address] [place] [address] [email or web address] GA: [id number] Social History Tobacco Use Types Packs/Day Years Used Date Smoking Tobacco: Never Smokeless Tobacco: Never Alcohol Use Standard Drinks/Week Comments Not Currently 0 (1 standard drink = 0.6 oz pur e alcohol) rare Education Answer Date Recorded Are you interested in more education? Not on jenniffer e 08/15/2022 Are you concerned about learning? Not on file 08/15/2022 No 08/15/2022 No 08/15/2022 Food Answer Date Recorded Within the past 6 months we worried whether our food would run out before we got money to buy more. Never True 01/06/2025 Within the past 6 months the food we bought just didn't last and we didn't have enough money to get more. Never True Residential Stability Answer Date Recor ded What is your housing situation today? I have rom morrison 01/06/2025 How many times have you move d in the past 12 months? Zero (I did not move) 01/06/2025 Paying for Meds Answer Date Recorded Do you have trouble paying for medicines? No 01/06/2025 Paying Utility Bills Answer Date Record ed Do you have trouble paying your heating or elect ricity bill? No 01/06/2025 Transportation Answer Date Recorded Has the lack of transportati on kept you from medical appointments or from getting medications? No 01/06/2025 Digital Access Answer Date Recorded No 01/06/2025 Yes 01/06/2025 Do you have reliable internet access at home? Ye s 01/06/2025 Do you have a device (e.g., phone, tablet, computer) with a working camera? Yes 01/06/2025 Intimate Partner Violence Answer Date R ecorded Are you denied basic needs s uch as food, clothing, or medical care? No 01/06/2025 In the past 12 months have y ou been in a relationship with a person who hurts, threatens, or tries to control you? No 01/06/2025 Are you denied basic needs s uch as food, clothing, or medical care? No 01/06/2025 In the past 12 months have y ou been in a relationship with a person who hurts, threatens, or tries to control you? No 01/06/2025 Estimated Date of Delivery Comme nts Yes 03/10/2025 Based on last me nstrual period of 06/03/2024 (Exact Date) Sex and Gender Information Value Date Recorded Sex Assigned at Female 01/06/2025 3:56 PM EDT Legal Sex Female 8:55 PM EDT Gender Identity Female 01/06/2025 3:56 PM EDT Sexual Orientation Not on file Occupation Industry Job Start Date Job End Date [employer], [employer] Not on file No t on file Not on file documented as of this encounter Last Filed Vital Signs Vital Sign Reading Time Taken Comments Blood Pressure 102/62 01/11/2025 4:34 PM EDT Pulse - - Temperature - - Respiratory Rate - - Oxygen Saturation - - Inhaled Oxygen Concentration - - Weight 74.8 kg (165 lb) 01/11/2025 4:34 PM EDT Height - - Body Mass Index 27.46 01/06/2025 3:50 PM EDT documented in this encounter Progress Notes * Michelle Lauren MA - 01/11/2025 4:30 PM EDT Packet 6 given, EPDS completed. Plans Tdap next OV * Charo Multani CNM - 01/11/2025 4:30 PM EDT Encounter for supervision of normal in third trimester Rachel is doing ok. She and her son both just got over pneumonia! She is happy to be feeling better. Baby is moving well. No other concerns. Would like to do TDAP at next visit. Interested in flu and RSV later in as well. EPDS 5. Feels mental health is good. Sacroiliac pain during Cortisone injection helped. Has PT scheduled. History of section Will continue to work with her project assistant and PT. Will make decision about mode of delivery closerto term depending on how her back is feeling. documented in this encounter Miscellaneous Notes * Assessment & Plan Note - Charo Multani CNM - 01/11/2025 5:10 PM EDT Associated Problem(s): History of section Will continue to work with her project assistant and PT. Will make decision about mode of delivery closerto term depending on how her back is feeling. * Assessment & Plan Note - Charo Multani CNM - 01/11/2025 5:08 PM EDT Associated Problem(s): Sacroiliac pain during Cortisone injection helped. Has PT scheduled. * Assessment & Plan Note - Charo Multani CNM - 01/11/2025 5:07 PM EDT Associated Problem(s): Encounter for supervision of normal in third trimester Rachle is doing ok. She and her son both just got over pneumonia! She is happy to be feeling better. Baby is moving well. No other concerns. Would like to do TDAP at next visit. Interested in flu and RSV later in as well. EPDS 5. Feels mental health is good. documented in this encounter Plan of Treatment Upcoming Encounters Date Type Department Care Team (Late st Contact Info) Description 01/26/2025 3:50 PM EDT Routine [facility] [address] [place] [address] [place] [address] Crystal Bradley CNM [address] [place] [address], [address] [place] [address] [email or web address] documented as of this encounter Visit Diagnoses Diagnosis Encounter for supervision of other normal in third trimester- Primary Sacroiliac pain during History of section Other postprocedural status documented in this encounter Additional Health Concerns Infection Onset Date Last Indicated Resolved Time CoV-Risk 01/06/2025 01/06/2025 Assessment Noted Time PHQ-2 Depression Total Score: 0 01/13/20 19 4:29 PM EDT documented as of this encounter Care Teams Heat Treat Inspector Relationship Specialty Start Date End Date Roseline Villafana PA [address] [place] [place] [address] .Ganipara PCP - General Physician Hair Spring Cutter 12/23/23 Samira Brambila MD [address] [place] [address], [address] [place] [address] [email or web address] Historical LMR Provider 02/05/17 Samira Brambila MD [address] [place] [address], [address] [place] [address] [email or web address] Primary Care Physician 03/05/17 documented as of this encounter Additional Source Comments The information contained in this document represents components of the legal health record. It is not the complete legal health record.[facility]
--- NOTE | 2025-01-13 09:37 | A.OFFVIS_ITS ---
Vital Signs 01/13/25 09:38 Height 5 ft 5 in Weight 165 lb BMI 27.5 BP 100/60 Blood Pressure Location Lt brachial Position Sitting Respiration 16 Pulse 94 Pulse Source Pulse Oximeter Pulse Oximetry (%) 97 Oxygen Delivery Method Room Air Intake Visit Reasons: s/p L5-S1 JAY Returns Supervisor Required: No Allergies No Known Allergies Allergy (Verified 01/13/25 09:45) Medication List - Last Reconciled 01/13/25 by Luisa Pedraza LPN escitalopram oxalate (Lexapro) 10 mg PO DAILY HPI HPI s/p L5-S1 JAY: Details: History of Present Illness The patient is a 29-year-old female presenting for follow-up after an L5-S1 interlaminar epidural injection. She reports a 75% improvement in her condition post-injection and is actively participating in physical therapy and home exercises. Recently, she suffered from pneumonia, which she contracted from her son, leading to increased back pain due to coughing. Currently, she is 32 weeks , and her back pain could worsen as the progresses. Her previous section was due to a large baby at 41 weeks, and she is considering a vaginal delivery to avoid the extended recovery period associated with another . Pain Description - Onset: Post-epidural injection, with significant improvement noted - Quality: Radiating pain consistent with lumbosacral radiculopathy - Exacerbating factors: Coughing due to recent pneumonia - Relieving factors: Physical therapy and stretching exercises Physical Exam - Appears afebrile. - Alert and oriented. - Mood and affect appropriate. - Follows and participates in conversation appropriately. - Respiratory effort is unlabored. - Able to transition from sit to stand unassisted. Results Pain Management - Affect: No specific mood impact discussed - Analgesia: 75% improvement post-epidural injection - Adverse Effects: None reported - Activities of Daily Living: Engaging in physical therapy and home exercises - Aberrant Drug Related Behaviors: None reported [facility] Medical History (Updated 12/01/24 @ 11:28 by Luisa Pedrzaa LPN) Sacrococcygeal disorders, not elsewhere classified Radiculopathy, lumbar region Physical Exam Vital Signs: Last Vital Signs Pulse 94 01/13/25 09:38 Resp 16 01/13/25 09:38 BP 100/60 01/13/25 09:38 Pulse Ox 97 01/13/25 09:38 Oxygen Delivery Method Room Air 01/13/25 09:38 BMI result Body Mass Index 27.5 Assessment & Plan Assessment & Plan (1) Radiculopathy, lumbar region: Code(s): M54.16 - Radiculopathy, lumbar region Category: Medical Plan Plan Patient was informed and verbally consented to the use of an ambient scribe for clinic note documentation during this visit. 1. Lumbosacral Radiculopathy - Continue physical therapy and home exercises to maintain improvement. - Monitor for any increase in pain, especially as progresses. 2. Pneumonia - No specific treatment discussed; focus on recovery and managing exacerbation of back pain. 3. -Related Back Pain - Continue with physical therapy and core strengthening exercises. - Consider early epidural during labor to manage pain effectively. Discussion Notes I discussed with the patient the potential for increased back pain as her progresses, particularly due to nerve compression by the fetus. We als o talked about the option of an early epidural during labor to manage pain effectively, considering her history of back pain and previous section. I advised her to continue with physical therapy and core strengthening exercises to support her back health. Patient Instructions - Continue attending physical therapy sessions twice a week. - Perform stretching exercises at home regularly. - Monitor for any increase in back pain and seek medical advice if necessary. - Consider discussing early epidural options with your editor managing newspaper. Coding Level of Care Code Est Pt Level 3 (29901) Diagnoses Radiculopathy, lumbar region M54.16
[2025-01-13 09:38] VITALS: BP 100/60; PULSE 94; RESP 16; O2SAT 97; BMI 27.5
--- OUTSIDE RECORDS SUMMARY | 2025-01-13 10:31 | XMS_ITS | Encounter Summary ---
Author Organization [facility] Address [address] [place] [address] Phone Care Team Providers Care Solder Sprayer Name Role Phone Samira Brambila MD Unavailable Samira Brambila MD Unavailable [phone] Roseline Villafana Primary Care Provider [phone] Reason for Visit * Reason Onset Date Comments - not feeling well 01/04/2025 Encounter Details Date Type Department Care Team (Late st Contact Info) Description 01/04/2025 Telephone [facility]etrics - Virtual Department [address] [place] [address] Hazel Dinero CNM [address], [address] [place] [address] [email or web address] - not feeling well Social History Tobacco Use Types Packs/Day Years [...] Date Job End 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 Wish to be (Past 1 Month) No 01/06/2025 3:55 PM EDT Flora Juarez, LISY 2. Non-Specific Active Suici sahra Thoughts (Past 1 Month) No 01/06/2025 3:55 PM EDT Flora Juarez, LISY 6. Suicidal Behavior (Lifetime) No 3:55 PM EDT Flora Juarez, LISY documented as of this encounter Progress Notes * Klaudia Jj LPN - 01/11/2025 12:47 PM EDT Patient has a LORI today with RM at 4:30. * Keyona Vergara RN - 01/10/2025 8:52 AM EDT LMTCB * Klaudia Jj LPN - 01/09/2025 8:30 AM EDT LMTCB. * Klaudia Jj LPN - 01/09/2025 7:49 AM EDT Patient diagnosed with left lower lobe pneumonia. Hold to call patient today to see how she is feeling. * Keyona Vergara RN - 01/06/2025 1:35 PM EDT Sw patient, advised of AR's message, patient verbalized understanding and will go be seen in the ER Triage will follow up with patient on Thursday, message postponed * Crystal Bradley CNM - 01/06/2025 1:33 PM EDT I'm sorry, we cannot accommodate another patient on the CBC today. I recommend ER visit. * Lizet Orozco LPN - 01/06/2025 1:21 PM EDT Pt called back, states she tested negative for all concerning viruses, states informed viral syndrome of unknown origin, she today cannot keep solids in, only tolerating sips of liquids last void at 8 am, still having loose stools,states feels terrible, sounds shaky on phone, reports no fever sinceweds. Notes regular FM and no regular contractions at this time. Advised I will review with data integration analyst MEMO if she should go to CBC or ED. Message to Crystal Bradley CNM * Lizet Orozco LPN - 01/04/2025 2:50 PM EDT Pt called in, states she has UC appt this pm, she has had loose stools,nausea, and body aches, Tempwas 100.7 but has started taking Tylenol. Advised continuing with Tylenol, 1 extra strength or 2 regular strength q 4 hrs, hydration, rest, monitor for DFM or increased contractions, to call in if fever over 101.0 after Tylenol use, or less than 5 BK's in an hour after monitoring on left side, or mo re than 5 contractions in an hour. Advised if tests positive for COVID or Flu to notify us, advisedPaxlovid or Tamiflu is recommended in also to help lessen severity of symptoms. Pt verbalized understanding. * Hazel Dinero CNM - 01/04/2025 7:26 AM EDT Received page from Rachel with complaint of vomiting, body aches and headache for the last few days. Please call and review comfort measures and need for urgent care or PCP visit if symptoms worsen orpersist. Thanks! documented in this encounter Plan of Treatment Upcoming Encounters Date Type Department Care Team (Late st Contact Info) Description 01/26/2025 3:50 PM EDT Routine [facility] Midwifery [address] [place] [address] [place] [id number] Crystal Bradley CNM [address], [address] [place] [address] [email or web address] documented as of this encounter Visit Diagnoses Not on filedocumented in this encounter Additional Health Concerns Infection Onset Date Last Indicated Resolved Time CoV-Risk 01/06/2025 01/06/2025 Assessment Noted Time PHQ-2 Depression Total Score: 0 01/13/20 19 4:29 PM EDT documented as of this encounter Care Teams Solder Sprayer Relationship Specialty Start Date End Date [place] [id number] [email or web address] PCP - General Physician Utilization Coordinator 12/23/23 Samira Brambila MD [address] [place] [id number] Historical LMR Provider 02/05/17 Samira Brambila MD [address] [place] [id number] [email or web address] Primary Care Physician 03/05/17 documented as of this encounter Additional Source Comments The information contained in this document represents components of the legal health record. It is not the complete legal health record.[facility]
--- OUTSIDE RECORDS SUMMARY | 2025-01-13 10:31 | XMS_ITS | Encounter Summary ---
Author Organization [facility] Address [address] [address] Phone Care Team Providers Care Wire Bender Hand Name Role Phone Crystal Bradley MEMO Unavailable Sheila Acharya NP Unavailable [phone] Samira Brambila MD Unavailable Chloé Elkins MD Unavailable [phone] Samira Brambila MD Unavailable [phone] Samira Brambila MD Primary Care Provider Unknown, Unknown Primary Care Provider Samira Castañeda MD Primary Care Provider Pcp, Unknown Primary Care Provider UnavailRoseline Stoll Primary Care Provider [phone] Encounter Details Date Type Department Care Team (Latest Contact Info) Description 03/24/2017 Transcribe Orders [facility] [address] [place] [address] Karthikeyan Odom MD, PhD [address] [place] [address] [id number] [email or web address] Anemia due to vitamin B12 deficiency, unspecified [...] PM EDT Sexual Orientation Not on file documented as of this encounter Plan of Treatment Upcoming Encounters Date Type Department Care Team (Late st Contact Info) Description 01/26/2025 3:50 PM EDT Routine [facility] Midwifery [address] [place] [address] [place] [address] Crystal Bradley, MEMO [address] [facility] [address] [place] [address] [email or web address] documented as of this encounter Procedures Procedure [...] VITAMIN B12 591 [id number] - 894 pg/mL [facility] Blood 03/24/2017 3:28 PM EST 03/24/2017 3:29 PM EST us Karthikeyan Odom MD, PhD LAB BLOOD ORDERABLES Fi nal Result [facility] [address] [place] [address] * Lyme screen with reflex to Western blot, blood (03/24/2017 3:28 PM EST) Lyme AB IgG Negative Negative [facility] Lyme AB IgM Negative Negative [facility] Blood 03/24/2017 3:28 PM EST 03/24/2017 3:29 PM EST us Karthikeyan Odom MD, PhD LAB BLOOD ORDERABLES Fi nal Result [facility] [address] [place] [address] documented in this encounter Visit Diagnoses Diagnosis Anemia due to vitamin B12 deficiency, unspecified B12 deficiency type- Primary Lyme disease Chronic fatigue Other malaise and fatigue documented in this encounter Additional Health Concerns Infection Onset Date Last Indicated Resolved Time CoV-Risk 01/06/2025 01/06/2025 documented as of this encounter Care Teams Wire Bender Hand Relationship Specialty Start Date End Date Samira Brambila MD [address] [place] [address], [address] [place] [address] PCP - General 03/05/17 01/15/21 Unknown, MD Rex PCP - General 01/16/21 01/30/21 Samira Brambila MD [address] [place] [address], [address] [place] [id number] PCP - General Internal Medicine 01/31/21 08/20/21 Pcp, Unknown PCP - General 08/21/21 12/22/23 Roseline [place] [address] [email or web address] PCP - General Physician Patch Washer 12/23/23 Crystal Bradley CNM [address] [place] [address] Historical LMR Provider 02/05/17 04/27/21 Sheila Acharya UPTWISTER TENDER [address] [place] [address] Historical LMR Provider 02/05/17 2 Samira Brambila MD [address] [place] [id number] [email or web address] Historical LMR Provider 02/05/17 Chloé Elkins MD [address] [place] [address] Historical LMR Provider 02/05/17 2 Samira Brambila MD [address] [place] [id number] [email or web address] Primary Care Physician 03/05/17 documented as of this encounter Additional Source Comments The information contained in this document represents components of the legal health record. It is not the complete legal health record.[facility]
--- OUTSIDE RECORDS SUMMARY | 2025-01-13 10:31 | XMS_ITS | Clinical Summary ---
Author Organization [facility] Address [address] [facility] [address] [place] [address] Phone Care Team Providers Care Paraffin Machine Operator Name Role Phone Samira Brambila MD Unavailable [phone] Samira Brambila MD Unavailable [phone] Roseline Villafana Primary Care Provider [phone] Allergies No known active allergies Medications beclomethasone [...] needed (sedation). 30 tablet 1 11/15/2024 Active azithromycin (ZITHROMAX) 250 MG tablet Take 1 tablet (250 mg total) by mouth daily. 4 tablet 01/06/2025 Active amoxicillin (AMOXIL) 500 MG capsule Take 2 capsules (1,000 mg total) by mouth 3 (three) times a day for 7 days. 42 capsule 01/06/2025 01/14/20 25 Active promethazine (PHENERGAN) 25 MG tablet Take 1 tablet (25 mg total) by mouth every 6 (six) hours as needed for nausea. 15 tablet 01/06/2025 Active Active Problems Problem Noted Date Diagnosed Date Sacroiliac pain during 11/09/2024 Overview (12/13/2024): Seeing Dr. Mclean. Concern for disc herniation, MRI scheduled. - L5/S1 disc protrusion Tried tylenol, lidocaine patches, flexeril to no effect. 11/09/24: Dr. Naidu jimena narcotic. Rx for 30 tabs of oxycodone 5 mg rx'ed. Started PT Has cortisone injection planned Assessment & Plan (01/11/2025 5:08 PM EDT): Cortisone injection helped. Has PT scheduled. 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 Will make decision about mode of delivery closer to term depending on how her back is feeling. Assessment & Plan (12/13/2024 8:16 AM EDT): [...] sign MOISES specifically for the [facility] [place]. Info packet given. Pt planning another baby after this one, so would prefer two VBACs. However, wants to avoid another long labor that ended in a CS. Assessment & Plan (08/16/2024 12:46 PM EDT): Rachel reports she is open to either TOLAC or repeat c/s and is interested in discussing further about risks/benefits of both and recommendations. Encounter for supervision of normal in third trimester 07/29/2024 Overview (01/11/2025): [facility] Group PN care? * screening cfDNA Baby ASA n/a Rh A+ GC/Chlam Neg/Neg PAP - up to date per pt, [place]ISES sent for [place] records Flu * COVID-19 * Hgb 11.3 GTT 85 Repeat RPR NR Tdap * EPDS 5 PPBC * GBS * Infant Feeding Plan * Partner, Johnnie Expecting baby girl Assessment & Plan (01/11/2025 5:11 PM EDT): Rachel is doing ok. She and her son both just got over pneumonia! She is happy to be feeling better. Baby is moving well. No other concerns. Would like to do TDAP at next visit. Interested in flu and RSV later in as well. EPDS 5. Feels mental health is good. Assessment & Plan (12/13/2024 8:19 AM EDT): [...] Encounters Date Type Department Care Team Description 01/11/2025 4:30 PM EDT Routine [facility] [address] [place] [address] [place] [address] Charo Multani CNM GA: [id number] 01/06/2025 4:14 PM EDT - 01/06/2025 9:20 PM EDT Emergency [facility] [address] [place] [address] Discharge Disposition: Home or Self Care 01/04/2025 Telephone [facility]s - Virtual Department [address] [place] [address] Hazel Dinero CNM - not feeling well 12/13/2024 8:11 AM EDT - 12/13/2024 11:59 PM EDT Hospital Encounter [facility] [address] [place] [address] Crystal Bradley CNM Discharge Disposition: Home or Self Care 12/13/2024 7:50 AM EDT Routine [facility] [address] [place] [address] Laury Quinn CNM GA: 27w4d 11/21/2024 Orders Only [facility] Neurology [address] [place] [address] Opal Spencer MA Lumbar radiculitis 11/17/2024 Orders Only [facility] Spine Medicine [address] [place] [address] Bo Mclean MD 11/15/2024 7:50 AM EDT Routine [facility] [address] [place] [address] [place] [address] Crystal Bradley CNM GA: 23w4d 11/09/2024 3:29 PM EDT - 11/09/2024 11:59 PM EDT Hospital Encounter [facility] [address] [place] [address] Clari Mack CNM Discharge Disposition: Home or Self Care 11/09/2024 9:00 AM EDT Telemedicine - audio only [facility] Sp[facility] Medicine [address] [place] [address] [place] [address] Bo Mclean MD Lumbar radiculitis (Primary Dx); Disorder of sacrum 11/09/2024 Refill [facility] [address] [place] [address] [place] [address] Jacque Peace CNM Medication Refill 11/07/2024 Orders Only [facility] Medicine [address] [place] [address] [place] [address] Bo Mclean MD Lumbar radiculitis (Primary Dx) 11/06/2024 Telephone [facility] Obstetrics - Virtual Department [address] [place] [address] Hazel Dinero CNM worsening SI pain 11/04/2024 Telephone [facility] [address] [place] [address] [place] [address] Clari Mack CNM Appointment 11/03/2024 Orders Only [facility] Medicine [address] [place] [address] [place] [address] Bo Mclean MD Disorder of sacrum (Primary Dx) 11/03/2024 Telephone [facility] Medicine [address] [place] [address] [place] [address] Bo Mclean MD 10/20/2024 9:30 AM EDT Routine [facility] [address] [place] [address] [place] [address] Clari Mack CNM GA: 19w6d 10/20/2024 8:06 AM EDT - 10/20/2024 11:59 PM EDT Hospital Encounter [facility] [address] [place] [address] Charo Multani CNM Discharge Disposition: Home or Self Care 10/13/2024 8:20 AM EDT Office Visit [facility] Sp[facility] Medicine [address] [place] [address] Bo Mclean MD Disorder of sacrum (Primary Dx); related back pain in second trimester, antepartum from Last 3 Months Immunizations Immunization Administration Dates Next Due COVID-19 (Pre-02/09) Moderna Vaccine, mRNA, PF 01/05/2021,11/28/2020 DTaP 10/30/1997, 5,01/10/1994,11/08,1993 [id number] FORMULATION 01/25/2009 HPV,quadrivalent 04/15/2012,12/23/2011, 2 Hepatitis B [...] your housing situation today? I have rom sing 01/06/2025 How many times have you move [...] Job Start Date Job End Date [employer], [employer] Not on file No t on file Not on file Last Filed Vital Signs Vital Sign Reading Time Taken Comments Blood Pressure 102/62 01/11/2025 4:34 PM EDT Pulse 102 01/06/2025 8:11 PM EDT Temperature 37 C (98.6 F) 01/06/2025 3:50 PM EDT Respiratory Rate 16 01/06/2025 6:24 PM EDT Oxygen Saturation 96% 01/06/2025 9:00 PM EDT Inhaled Oxygen Concentration - - Weight 74.8 kg (165 lb) 01/11/2025 4:34 PM EDT Height 165.1 cm (5' 5 ) 01/06/2025 3:50 PM EDT Body Mass Index 27.46 01/06/2025 3:50 PM EDT Plan of Treatment Upcoming Encounters Date Type Department Care Team (Late st Contact Info) Description 01/26/2025 3:50 PM EDT Routine [facility] [address] [place] [address] [place] [address] Crystal Bradley CNM [address] [place] [address], [address] [address] [email or web address] Health Maintenance Due Date Last Done Comments PNEUMOCOCCAL VACCINES (0-49 years) (1 of 2 - PCV) 2012 DEPRESSION SCREENING 01/13/2020 01/12/2019 PAP SMEAR 01/12/2022 01/12/2019, 12/20, 08/15/2014 INFLUENZA VACCINE (#1) 2024 , 03/21/2020, 01/12/2019, Additional history exists COVID-19 VACCINE (3 - season) 2024 01/05/2021, 11/28/2020 RSV VACCINE (1 - Risk 1-dose series) 01/13/2025 Adult Td,Tdap Booster 04/10/2032 04/10/2022, 006 HIB VACCINES Completed 10/09/1994, 12/20, 1993, Additional history exists MENINGOCOCCAL VACCINES (ACWY) Completed 10/14/2011, 07/21/2005 HEPATITIS C SCREENING Completed 08/16/2024 HIV ONE-TIME SCREENING (18-65 YEARS) Completed 08/16/2024 SMOKING STATUS SCREENING (Once After 26 Yrs) Completed 01/06/2025 HEPATITIS A VACCINES Aged Out No long er eligible based on patient's age to complete this topic MENINGOCOCCAL VACCINES (B) Aged Out N o longer eligible based on patient's age to complete this topic Medical Devices Not on file Procedures Procedure Name Priority Date/Time Associated Diagnosis Comments ECG 12-LEAD STAT 01/06/2025 9:04 PM EDT XR CHEST PORTABLE Routine 01/06/2025 6:1 0 PM EDT COVID PANDEMIC RESPIRATORY VIRAL ORDER (PRO) STAT 01/06/2025 5:34 PM EDT LIPASE STAT 01/06/2025 4:52 PM EDT MAGNESIUM STAT 01/06/2025 4:52 PM EDT LFTS (HEPATIC PANEL) STAT 01/06/2025 4:52 PM EDT BASIC METABOLIC PANEL STAT 01/06/2025 4:52 PM EDT CBC AND DIFFERENTIAL STAT 01/06/2025 4:52 PM EDT GLUCOSE TOLERANCE TEST, 1 HR Routine 12/13/2024 [...] Recently Relevant to Health Maintenance Results * ECG 12-LEAD (01/06/2025 9:04 PM EDT) Ventricular Rate EKG/MIN 111 BPM [facility] Atrial Rate 111 BPM [facility] [place] Interval 130 ms [facility] QRS Duration 82 ms [facility] QT Interval 336 ms [facility] QTC Interval 456 ms [facility] P [place] 51 degrees [facility] R Wave [place] 31 degrees [facility] T Wave [place] 13 degrees [facility] 01/06/2025 9:04 PM EDT 01/08/2025 6:59 AM EDT Narrative [facility] - 01/08/2025 6:59 AM EDT Sinus tachycardia Otherwise normal ECG No previous ECGs available Confirmed by Dinesh Mccoy ([id number]) on 01/08/2025 6:59:49 AM us Rosalio Roberts PA-C ECG ORDERABLES Final Result [facility] * XR Chest Portable (01/06/2025 6:10 PM EDT) 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 [facility] Anatomical Region Laterality Modality Chest Computed Radiogr aphy 01/06/2025 6:49 PM EDT Impressions 01/06/2025 7:01 PM EDT Hazy airspace opacities in the left lower hemithorax, likely pneumonia. A clinically significant result was initiated on 01/06/2025 7:01 PM, Message ID [id number]. ATTESTATION: Sheila Barfield as teaching physician, have reviewed the images for this case and if necessary edited the report originally created by Tre Álvarez. Narrative 01/06/2025 7:01 PM EDT XR CHEST PORTABLE Referring clinician's provided indication for this examination in Epic: Cough COMPARISON: None FINDINGS: Devices/Tubes/Lines: None. Lungs: Patchy airspace opacities in the left lower hemithorax. Pleura: No pleural effusion or pneumothorax. Heart/Mediastinum: Normal heart and mediastinum. Bones/Soft Tissues: No significant abnormality. Procedure Note Sheila Ratliff MD - 01/06/2025 XR CHEST PORTABLE Referring clinician's provided indication for this examination in Epic:Cough COMPARISON: None FINDINGS: Devices/Tubes/Lines: None. Lungs: Patchy airspace opacities in the left lower hemithorax. Pleura: No pleural effusion or pneumothorax. Heart/Mediastinum: Normal heart and mediastinum. Bones/Soft Tissues: No significant abnormality. IMPRESSION: Hazy airspace opacities in the left lower hemithorax, likely pneumonia. A clinically significant result was initiated on 01/06/2025 7:01 PM,Message ID [id number]. ATTESTATION: Sheila Barfield as teaching physician, have reviewed theimages for this case and if necessary edited the report originally createdby Tre Álvarez. Rosalio Roberts PA-C IMG XR CHEST Final Result * COVID Pandemic Respiratory Viral Order (PRO) (01/06/2025 5:34 PM EDT) [facility] Test Ordered Rapid COVID has been ordered [facility] Specimen Source/Description NASAL [facility] SARS-CoV 2 (COVID-19) PCR Not Detected Not Detected [facility] Comment: SARS-CoV-2 not detected Negative results do not preclude SARS-CoV-2 infection and should not be used as the sole basis for patient management decisions. Negative results must be combined with clinical observations, patient history, and epidemiological information. Other (Nasopharyngeal swab) 01/06/2025 5:34 PM EDT 01/06/2025 5:50 PM EDT us Rosalio Roberts PA-C BODY FLUIDS AND STOOLS ORDERA BLES Final Result Performing Organization Address [facility] Co de Phone Number [address] [address] * (ABNORMAL) LFTs (hepatic panel) (01/06/2025 4:52 PM EDT) ALKALINE PHOSPHATASE 93 39 - 117 U/L [facility] TOTAL BILIRUBIN 0.5 0.0 - 1.2 mg/dL [facility] DIRECT BILIRUBIN 0.2 0.0 - 0.2 mg/dL [facility] Bilirubin (Indirect) 0.3 0 - 1.5 mg/dL [facility] AST 20 0 - 37 U/L [facility] ALT 13 0 - 40 U/L [facility] TOTAL PROTEIN 6.5 6.5 - 8.0 g/dL [facility] ALBUMIN 3.3(L) 3.9 - 4.8 g/dL [facility] GLOBULIN 3.2 1 - 4.8 g/dL [facility] A/G Ratio 1.03 1.00 - 4.80 RATIO [facility] Blood 01/06/2025 4:52 PM EDT 01/06/2025 5:04 PM EDT us Ramiro Michelle MD LAB BLOOD ORDERABLES Final Resu lt Performing Organization Address City/[facility]/ZIP Co de Phone Number [address] [address] * (ABNORMAL) CBC and differential (01/06/2025 4:52 PM EDT) WBC 7.85 4.00 - 11.00 K/uL [facility] RBC 3.34(L) 4.00 - 5.20 M/uL [facility] HGB 10.7(L) 12.0 - 16.0 g/dL [facility] HCT 31.6(L) 36.0 - 46.0 % [facility] PLT 167 150 - 450 K/uL [facility] MCV 94.6 80.0 - 100.0 fL [facility] MCH 32.0(H) 27.0 - 31.0 pg [facility] MCHC 33.9 32.0 - 36.0 g/dL [facility] RDW 14.0 11.5 - 14.5 % [facility] MPV 9.4 8.4 - 12.0 fL [facility] NRBC 0.00 0.00 /100 WBCs [facility] ABSOLUTE NRBC 0.00 0.00 K/uL [facility] DIFF METHOD Auto [facility] NEUTS 80.6(H) 48.0 - 76.0 % [facility] LYMPHS 9.0(L) 18.0 - 41.0 % [facility] MONOS 9.0 4.0 - 11.0 % [facility] EOS 0.5 0.0 - 5.0 % [facility] BASOS 0.3 0.0 - 1.5 % [facility] Granulocytes, immature (%) 0.6 0.0 - 0.9 % [facility] ABSOLUTE NEUTS 6.32 1.92 - 7.60 K/uL [facility] ABSOLUTE LYMPHS 0.71(L) 0.72 - 4.10 K/uL [facility] ABSOLUTE MONOS 0.71 0.16 - 1.10 K/uL [facility] ABSOLUTE EOS 0.04 0.00 - 0.50 K/uL [facility] ABSOLUTE BASOS 0.02 0.00 - 0.15 K/uL [facility] Granulocytes, immature 0.05 0.00 - 0.09 K/uL [facility] Blood 01/06/2025 4:52 PM EDT 01/06/2025 5:04 PM EDT us Ramiro Michelle MD LAB BLOOD ORDERABLES Final Resu lt Performing Organization Address [facility]/ZIP Co de Phone Number [address] [address] * Magnesium (01/06/2025 4:52 PM EDT) MAGNESIUM 1.7 1.6 - 2.6 mg/dL [facility] Blood 01/06/2025 4:52 PM EDT 01/06/2025 5:04 PM EDT us Ramiro Michelle MD LAB BLOOD ORDERABLES Final Resu lt Performing Organization Address [facility]/ZIP Co de Phone Number [address] [address] * Lipase (01/06/2025 4:52 PM EDT) LIPASE 29 16 - 63 U/L [facility] Blood 01/06/2025 4:52 PM EDT 01/06/2025 5:04 PM EDT us Ramiro Michelle MD LAB BLOOD ORDERABLES Final Resu lt Performing Organization Address [facility] Co de Phone Number [address] [address] * (ABNORMAL) Basic metabolic panel (01/06/2025 4:52 PM EDT) SODIUM 132(L) 133 - 146 mmol/L [facility] CHLORIDE 99 96 - 108 mmol/L [facility] POTASSIUM 3.4 3.3 - 5.1 mmol/L [facility] CO2 18(L) 21 - 35 mmol/L [facility] BUN 4(L) 6 - 19 mg/dL [facility] CREATININE 0.30(L) 0.5 - 1.5 mg/dL [facility] GLUCOSE 85 70 - 99 mg/dL [facility] CALCIUM 8.6 8.4 - 10.3 mg/dL [facility] EGFR >120 >59 mL/min/1.7 3m2 [facility] Comment:Estimated glomerular filtration rate calculated using the CKD-EPI refit equation. ANION GAP 18 10 - 20 mmol/L [facility] Blood 01/06/2025 4:52 PM EDT 01/06/2025 5:04 PM EDT us Ramiro Michelle MD LAB BLOOD ORDERABLES Final Resu lt Performing Organization Address [facility]/ZIP Co de Phone Number [address] [address] * Glucose tolerance test, 1 hr (12/13/2024 8:25 AM EDT) ONE HR GLUCOSE 85 70 - 180 mg/dL [facility] Blood 12/13/2024 8:25 AM EDT 12/13/2024 9:25 AM EDT us Crystal Bradley CNM LAB BLOOD ORDERABLES Final Resul t Performing Organization Address [facility] Co de Phone Number [address] [address] * Syphilis antibody screen (12/13/2024 8:25 AM EDT) RPR NON-REACTIV E NON-REACTI VE [facility] Blood 12/13/2024 8:25 AM EDT 12/13/2024 9:25 AM EDT Crystal RAZO LAB BLOOD ORDERABLES Final Resul t Performing Organization Address [facility] Co de Phone Number [address] [address] * (ABNORMAL) CBC (12/13/2024 8:25 AM EDT) WBC 8.43 4.00 - 11.00 K/uL [facility] RBC 3.64(L) 4.00 - 5.20 M/uL [facility] HGB 11.3(L) 12.0 - 16.0 g/dL [facility] HCT 35.3(L) 36.0 - 46.0 % [facility] PLT 236 150 - 450 K/uL [facility] MCV 97.0 80.0 - 100.0 fL [facility] MCH 31.0 27.0 - 31.0 pg [facility] MCHC 32.0 32.0 - 36.0 g/dL [facility] RDW 13.6 11.5 - 14.5 % [facility] MPV 9.6 8.4 - 12.0 fL [facility] NRBC 0.00 0.00 /100 WBCs [facility] ABSOLUTE NRBC 0.00 0.00 K/uL [facility] Blood 12/13/2024 8:25 AM EDT 12/13/2024 9:25 AM EDT us Crystal Bradley CNM LAB BLOOD ORDERABLES Final Resul t [facility] [address] [place], [place] [id number] * MRI Lumbar Spine (11/11/2024 10:55 AM EDT) Anatomical Region Laterality Modality L-spine MRI Diagnostic Bo Mclean MD IMG MR XSPECIALTY Final [...] described above appear normal. us Clari Mack CNConstance IMG US OBSTETRIC Final Res ult * [...] based on established GRISELDA Hadlock. Reported LMP: [id number] Gestational Age by LMP: 19 weeks 6 day(s) Ultrasound EGA: 19 weeks 3 day(s) Ultrasound GRISELDA: [id number] Established GRISELDA: 19 weeks 6 day(s) Biometry: [...] AM EDT) HCV NON-REACTIV E NON-REACTI VE [facility] Blood 08/16/2024 9:30 AM EDT 08/16/2024 9:43 AM EDT Charo RAZO LAB BLOOD ORDERABLES F inal Result Performing Organization Address City/State/[facility] Co de Phone Number [address] [address] * Pap Smear (01/12/2019 12:00 AM EDT) 01/12/2019 01/13/2019 10: 48 AM EDT Narrative SEE NARRATIVE - 01/19/2019 3:02 PM EDT [address] [address] New Car Salesperson: Valeria Coronel MD RAIL CAR WELDER Cytology Report FINAL DIAGNOSIS A. PAP SMEAR [...] A: PAP SMEAR (SUREPATH) CE Patient Name: RACHEL BALTAZAR : 1995 (Age: 23) Sex: F Institution: [facility] Location: [facility] Date of Collection: 01/12/2019 Date of Reported: 01/19/2019 15:02 Results to: Samira Brambila MD Samira Brambila MD CYTOLOGY ORDERABLES Final R esult SEE NARRATIVE from Last 3 Months or Most Recently Relevant to Health Maintenance Additional Health Concerns Infection Onset Date Last Indicated CoV-Risk 01/06/2025 01/06/2025 Insurance [employer] PLUS PPO [employer] PLUS PPO [employer] GIC PLUS PPO [employer] GIC PLUS PPO [employer] PLUS PPO [employer] [facility] PLUS PPO Care Teams Paraffin Machine Operator Relationship Specialty Start Date End Date Roseline Villafana PA [address] [place] [address] [email or web address] PCP - General Physician Alterations Workroom Clerk 12/23/23 Samira Brambila MD [address] [place] [address], [address] [place] [address] [email or web address] Historical LMR Provider 02/05/17 Samira Brambila MD [address] [place] [address], [address] [place] [address] Primary Care Physician 03/05/17 Additional Source Comments The information contained in this document represents components of the legal health record. It is not the complete legal health record.[facility]
--- OUTSIDE RECORDS SUMMARY | 2025-01-13 10:31 | XMS_ITS | Patient Health Record ---
Author Organization [facility] Address [address] [place] [address] Support Name Relationship Address Phone SUDHA STUBBS Guarantor Unknown [phone] Reason For Referral No Information Social History [...] [employer] Plan Management [address] [place] [address] [phone] [id number] SUDHA STUBBS Self - patient is the insured Medical (General) History Medical History History ICD Code Denies Surgical History Surgery Date(Month/Year) Denies
== END 2025-01-13 09:54 | disposition home or self-care (01) ==
LOC: HO.PMC 09:35
PROVIDERS: PCP Physician Assistant; Visit Provider Internal Medicine
DX: M54.16 Radiculopathy, lumbar region (principal)
CPT/HCPCS: 99213